=== PATIENT | female | born 1985 | race Caucasian/White ===

== ENCOUNTER → 2020-05-11 13:10 | Outpatient (BNVA) | payer OTHER, SELFPAY | PROVIDERS: Family Provider Nurse Practitioner Family; Visit Provider Obstetrics & Gynecology | DX: Z12.4 Encounter for screening for malignant neoplasm of cervix (principal); N93.9 Abnormal uterine and vaginal bleeding, unspecified | CPT/HCPCS: 83001; 84146; 84443; 84703; 85025; 88175 ==

== ENCOUNTER → 2020-05-19 14:53 | Outpatient (BNVA) | payer OTHER, SELFPAY | PROVIDERS: Family Provider Nurse Practitioner Family; Visit Provider Obstetrics & Gynecology | DX: N92.0 Excessive and frequent menstruation with regular cycle (principal) | CPT/HCPCS: 76830 ==

== ENCOUNTER 2021-02-09 08:19 | Outpatient (CLI) | payer OTHER, SELFPAY ==
[2021-02-09 07:11] VITALS: BP 129/85; PULSE 94; RESP 19; TEMP 36.8; O2SAT 91
[2021-02-09 08:30] VITALS: BMI 26.6
[2021-02-09 09:10] VITALS: BP 119/82; PULSE 80; RESP 18; TEMP 36.8; O2SAT 90
[2021-02-09 10:10] VITALS: BP 120/83; PULSE 73; RESP 17; TEMP 36.8
== END 2021-02-09 08:20 | disposition home or self-care (01) ==
LOC: OPS 08:20
PROVIDERS: PCP Family Medicine; Visit Provider Nurse Practitioner
DX: U07.1 COVID-19 (principal)
CPT/HCPCS: 96365

== ENCOUNTER → 2021-07-07 15:26 | Outpatient (BNVA) | payer OTHER, SELFPAY | PROVIDERS: PCP Family Medicine; Visit Provider Physician Assistant | DX: M25.562 Pain in left knee (principal); M25.462 Effusion, left knee | CPT/HCPCS: 73560; 73565 ==

== ENCOUNTER 2021-07-28 10:54 | Outpatient (CLI) | payer OTHER, SELFPAY ==
--- NOTE | 2021-07-28 11:00 | MR_ITS ---
WS: [id number] MRI LEFT KNEE NONCONTRAST TECHNIQUE: Axial PD, coronal PD fat sat, coronal PD, sagittal PD, and sagittal PD fat-sat images obta ined. CLINICAL INFORMATION: pain COMPARISON: None. FINDINGS: Distal quadriceps and patella tendons are intact. Moderate suprapatellar effusion. Small amount of pr epatellar and infrapatellar soft tissue edema. Hypertrophic patella. Normal ACL and PCL. Chronic thinning of the medial and lateral meniscus. No acute appearing meniscal tears. Grade II chondromalacia involving the medial and lateral joint compartments. No subchondral ed lupe. Normal medial and lateral collateral ligaments. Normal popliteus. Mild chondromalacia patella. Normal medial and lateral patellar retinaculum. Tiny popliteal cyst. MR/MR knee LT wo con* [id number] IMPRESSION: 1. Moderate suprapatellar effusion. 2. Normal ACL and PCL. 3. Chronic thinning of the medial and lateral meniscus. No acute appearing men iscal tears. 4. Mild chondromalacia patella. 5. Normal medial and lateral collateral ligaments. 6. Tiny popliteal cyst measuring 8 x 6 mm. 7. Grade II chondromalacia involving the medial and lateral joint compartments . No subchondral edema. Outbridge grading:
== END 2021-07-28 10:55 | disposition home or self-care (01) ==
LOC: RAD 10:55
PROVIDERS: PCP Family Medicine; Visit Provider Physician Assistant
DX: M25.462 Effusion, left knee (principal); M22.42 Chondromalacia patellae, left knee; M71.22 Synovial cyst of popliteal space [Baker], left knee; M25.562 Pain in left knee
CPT/HCPCS: 73721

== ENCOUNTER 2021-08-11 09:03 | Outpatient (CLI) | payer OTHER, SELFPAY ==
[2021-08-11 12:37] LABS: Alanine Aminotransferase 11 U/L (0-33); Albumin Level 4.7 g/dL (3.5-5.2); Alkaline Phosphatase 68 IU/L (35-105); Blood Urea Nitrogen 11 mg/dL (6-20); Calcium 9.3 mg/dL (8.5-10.5); Carbon Dioxide 26 mmol/L (22-29); Chloride 102 mmol/L (98-107); Globulin 3.1 g/dL (1.3-4.6); Glomerular Filtration Rate 96.4 mL/min (90-130); Glucose 84 mg/dL (65-115); Osmolality Calculated 287 mOsm/kg (285-295); Sodium 139 mmol/L (136-145); Total Bilirubin 0.4 mg/dL (0.15-1.2); Total Protein 7.8 g/dL (6.6-8.7)
[2021-08-11 12:40] LABS: Anion Gap 15.1 (5-19); Potassium 4.1 mmol/L (3.5-5.1)
[2021-08-11 12:41] LABS: Aspartate Amino Transferase 22 U/L (0-32)
[2021-08-12 12:03] LABS: COMPLEMENT COMPONENT C3C 153 mg/dL (83-193); COMPLEMENT COMPONENT C4C 29 mg/dL (15-57)
[2021-08-12 13:08] LABS: Erythrocyte Sedimentation Rate 14 mm/hr (0-15)
[2021-08-12 14:07] LABS: Cyclic Citrullinated Peptide <16 UNITS
[2021-08-12 16:13] LABS: COMPLEMENT, TOTAL (CH50) >60 U/mL (31-60); THYROID PEROXIDASE ANTIBODIES 2 IU/mL (<9)
[2021-08-12 16:47] LABS: CENTROMERE B ANTIBODY <1.0 NEG AI (<1.0 NEG); JO-1 ANTIBODY <1.0 NEG AI (<1.0 NEG); RNP ANTIBODY <1.0 NEG AI (<1.0 NEG); SCL-70 ANTIBODY <1.0 NEG AI (<1.0 NEG); SJOGREN'S ANTIBODY (SS-A) <1.0 NEG AI (<1.0 NEG); SM ANTIBODY <1.0 NEG AI (<1.0 NEG); SS-B <1.0 NEG AI (<1.0 NEG)
[2021-08-16 18:58] LABS: ANA SCREEN, IFA POSITIVE (NEGATIVE)
[2021-08-17 16:38] LABS: DNA AB (DS) CRITHIDIA,IFA NEGATIVE (NEGATIVE)
== END 2021-08-11 09:04 | disposition home or self-care (01) ==
PROVIDERS: PCP Family Medicine; Visit Provider Orthopaedic Surgery
DX: M17.12 Unilateral primary osteoarthritis, left knee (principal); M23.92 Unspecified internal derangement of left knee
CPT/HCPCS: 80053; 85651; 86140; 86160; 86162; 86200; 86235; 86255; 86376; 86431

== ENCOUNTER 2021-09-23 14:48 | Outpatient (CLI) | payer OTHER, SELFPAY ==
--- NOTE | 2021-09-23 15:22 | XR_ITS ---
WS: [id number] XR shoulder RT min 2V* [id number] REASON FOR EXAM: M19.90 - Unspecified osteoarthritis, unspecified site FINDINGS: No fracture or focal bone lesion. The acromial clavicular joint is intact without significant narrowing or subchondral bone change. Glenohumeral joint space is intact and relatively well-preserved. No significant subchondral bone aris nge in the humerus or glenoid. Moderate subchondral sclerosis in the humeral greater biceps tuberosity. XR/XR shoulder RT min 2V* [id number] IMPRESSION: Acromioclavicular and glenohumeral joints are without significant abnormality. Moderate rotator cuff tendon arthropathy.
--- NOTE | 2021-09-23 15:22 | XR_ITS ---
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 No erosions, bridging, or fusion is identified. No fracture or focal bone lesion. XR/XR sacroiliac jts m 3V [id number] IMPRESSION: No findings of spondyloarthropathy sacroiliitis.
[2021-09-23 15:50] LABS: Basophils % 0.1 %; Hematocrit 40.1 % (37.0-47.0); Hemoglobin 12.5 g/dL (11.5-15.3); Lymphocytes # 0.9 10^3/uL (0.8-4.8); Lymphocytes % 10.4 %; Mean Corpuscular HGB Conc 31.2 g/dL (30.0-36.0); Mean Corpuscular Hemoglobin 27.1 pg (28.0-34.0); Mean Platelet Volume 10.8 fL (7.4-10.4); Monocytes # 0.2 10^3/uL (0.2-0.9); Monocytes % 2.3 %; Neutrophils % 86.9 %; Nucleated Red Blood Cells % 0 %; Platelet Count 276 10^3/cmm (130-400); Red Blood Count 4.61 10^6/uL (4.1-5.3); White Blood Count 8.6 10^3/uL (4.0-10.0)
[2021-09-23 15:52] LABS: Erythrocyte Sedimentation Rate 22 mm/hr (0-15)
[2021-09-23 16:10] LABS: Add Urine Culture? No; Bacteria Urine TRACE /hpf; Bilirubin Urine Neg (Negative); Blood Urine Neg (Negative); Glucose Urine UA 4+ (Normal); Ketones Urine 1+ (Negative); Leukocyte Esterase Urine Negative (Negative); Nitrate Urine Negative (Negative); Protein Urine Neg (Negative); Specific Gravity, Urine 1.025 (1.005-1.030); Squamous Epithelial Cell Urine 0-4 /hpf (0-5); Urine Appearance Clear (CLEAR); Urine Color Yellow (Yellow); Urobilinogen Urine Norm (Negative); WBC Urine 0-4 /hpf (0-5); pH Urine 5 (5-7)
[2021-09-23 16:35] LABS: Hepatitis B Core AB, Total Non-Reactive (Nonreactive); Hepatitis B Surface Antigen Non-Reactive (Nonreactive); Hepatitis C Virus Antibody Non-Reactive (Nonreactive)
[2021-09-23 16:43] LABS: Urine Creatinine 142 mg/dL (28-217); Urine Protein Random 12 mg/dL
[2021-09-26 16:06] LABS: HLA-B27 NEGATIVE (NEGATIVE)
[2021-09-26 17:07] LABS: Quantiferon Mitogen 4.43 IU/mL; Quantiferon Nil 0.01 IU/mL; Quantiferon TB Gold NEGATIVE (NEGATIVE)
[2021-09-28 17:28] LABS: Thyroglobulin AB 4 IU/mL (< or = 1)
== END 2021-09-23 14:49 | disposition home or self-care (01) ==
LOC: RAD CLINIC 14:50 → RAD 14:51
PROVIDERS: PCP Family Medicine; Visit Provider Internal Medicine Rheumatology
DX: Z11.59 Encounter for screening for other viral diseases (principal); M45.6 Ankylosing spondylitis lumbar region; Z79.899 Other long term (current) drug therapy; R76.8 Other specified abnormal immunological findings in serum; M12.811 Other specific arthropathies, not elsewhere classified, right shoulder
CPT/HCPCS: 72202; 73030; 81001; 82570; 84156; 85025; 85651; 86140; 86480; 86704; 86800; 86803; 86812; 87340

== ENCOUNTER 2021-11-30 15:13 | Outpatient (CLI) | payer OTHER, SELFPAY ==
--- NOTE | 2021-11-30 15:15 | MR_ITS ---
WS: [id number] MRI RIGHT SHOULDER HISTORY: Anterior shoulder pain with limited range of motion. History of shoulder dislocation. COMPARISON: Radiographs 09/23/2021 TECHNIQUE: Multiplanar sequences of the shoulder joint are submitted. Normal AC joint. No AC ligament sprain. No fluid at the joint or marrow edema. There is a very tiny o steophyte from the distal undersurface of the acromion with minimal subacromial impingement. No os ac romion. Biceps tendon in good position. Glenohumeral joint is normal. No fracture or marrow edema. Increased signal in the distal supraspinat us tendon begins over the superior humeral head. Increased signal is most prominent on the proton den sity sequences. Near normal signal on the T2 sequences. Consistent with tendinopathy. No rotator cuff tear is identified. Rotator cuff muscles are normal size. No marrow edema or atrophy. There is a sma ll amount of fluid in the subacromial recess. No Hill-Sachs deformity. No Bankart lesion. No labral t ear is identified. MR/MR shoulder RT wo con* [id number] IMPRESSION: 1. Mild tendinopathy distal supraspinatus tendon. No tendon tear. 2. Small amount of fluid in the subacromial recess. 3. No labral tear. 4. No Bankart lesion or Hill-Sachs deformity.
== END 2021-11-30 15:14 | disposition home or self-care (01) ==
LOC: RAD 15:14
PROVIDERS: PCP Family Medicine; Visit Provider Internal Medicine Rheumatology
DX: M67.90 Unspecified disorder of synovium and tendon, unspecified site (principal)
CPT/HCPCS: 73221

== ENCOUNTER 2022-01-02 07:31 | Emergency (ER) | payer OTHER, SELFPAY ==
[2022-01-02 07:35] VITALS: BP 112/76; PULSE 84; RESP 15; TEMP 36.6; O2SAT 98; BMI 28.1
[2022-01-02 08:19] LABS: Basophils % 0.5 %; Eosinophils # 0.1 10^3/uL (0.0-0.8); Eosinophils % 1.2 %; Hematocrit 38.4 % (37.0-47.0); Hemoglobin 11.9 g/dL (11.5-15.3); Lymphocytes # 1.9 10^3/uL (0.8-4.8); Lymphocytes % 29.4 %; Mean Corpuscular Volume 87.3 fl (81-99); Mean Platelet Volume 10.5 fL (7.4-10.4); Monocytes # 0.3 10^3/uL (0.2-0.9); Monocytes % 4.9 %; Neutrophils % 63.7 %; Nucleated Red Blood Cells % 0 %; Platelet Count 275 10^3/cmm (130-400); Red Cell Distribution Width 14.2 % (12.1-15.1); White Blood Count 6.6 10^3/uL (4.0-10.0)
[2022-01-02 08:36] LABS: Alanine Aminotransferase 9 U/L (0-33); Albumin Level 3.9 g/dL (3.5-5.2); Alkaline Phosphatase 59 U/L (35-105); Anion Gap 13.9 (5-19); Aspartate Amino Transferase 13 U/L (0-32); Blood Urea Nitrogen 12 mg/dL (6-20); Calcium 9.3 mg/dL (8.5-10.5); Carbon Dioxide 27 mmol/L (22-29); Chloride 102 mmol/L (98-107); Globulin 3.3 g/dL (1.3-4.6); Glomerular Filtration Rate 141.2 mL/min (90-130); Glucose 89 mg/dL (65-115); Osmolality Calculated 287 mOsm/kg (285-295); Potassium 3.9 mmol/L (3.5-5.1); Sodium 139 mmol/L (136-145); Total Bilirubin 0.4 mg/dL (0.15-1.2); Total Protein 7.2 g/dL (6.6-8.7)
--- NOTE | 2022-01-02 08:43 | ED_ITS ---
HPI - General Adult General: Chief complaint: Needlestick/Injury/Exposure Stated complaint: needle stick Time Seen by Provider: 01/02/22 07:44 History of Present Illness: 36-year-old female presents emergency room after an accidental needlestick in the operating room. 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 Source patient is still in the operating room at this time has no known history of hepatitis or HIV as far as the patient is aware. Location: left and upper extremity Associated symptoms: Deny chest pain, dyspnea, malaise, nausea or vomiting Treatments prior to arrival: none Review of Systems Const: Denies: fever(s), chills, fatigue or malaise Card: Denies: chest pain Resp: Denies: dyspnea, productive cough or non-productive cough GI: Denies: abdominal pain, nausea or vomiting PFSH ED PFSH: Medical History High risk medication use Plaque psoriasis Positive PALOMO (antinuclear antibody) Psoriatic arthritis Surgical History H/O bariatric surgery 12/2017 H/O tubal ligation S/P cholecystectomy 2019 S/P tonsillectomy and adenoidectomy Family History Grandmother Thyroid condition paternal Mother Uterine cancer precancerous mid 30's Denies family history of Colon cancer Ovarian cancer Diabetes Clotting disorder Heart disease Hyperlipidemia Breast cancer Anesthesia complication Bleeding disorder Hypertension Stroke Social History Smoking and tobacco status: never smoked Alcohol intake: current Alcohol intake frequency: holidays/special occasions only Alcohol type: beer and wine Physical Exam Const: COMMON NORMALS: no acute distress GENERAL APPEARANCE: cooperative and comfortable ORIENTATION/CONSCIOUSNESS: Yes awake, Yes oriented to person, Yes oriented to place and Yes oriented to time HENMT: COMMON NORMALS: normocephalic and atraumatic HEAD & SCALP: normocephalic and atraumatic Resp: COMMON NORMALS: normal respiratory effort, No retractions, No use of accessory muscles and clear to auscultation bilaterally AUSCULTATION: clear to auscultation bilaterally Cardio: COMMON NORMALS: regular rate, regular rhythm and No murmurs present (Cardio) RATE: regular rate RHYTHM: regular rhythm Extremity: COMMON NORMALS: normal to inspection, capillary refill normal, no clubbing, cyanosis or edema, no calf tenderness and no pedal edema Neuro: SENSORIUM/ORIENTATION: Yes oriented to person, Yes oriented to place and Yes oriented to time Skin: COMMON NORMALS: no rashes or lesions noted GENERAL SKIN EXAM: no ra shes or lesions noted Course Vital Signs: Vital signs: Vital Signs Temperature 98 F 01/02/22 07:35 Pulse Rate 84 01/02/22 07:35 Respiratory Rate 15 01/02/22 07:35 Blood Pressure 112/76 01/02/22 07:35 Pulse Oximetry 98 01/02/22 07:35 Oxygen Delivery Me thod 01/02/22 07:35 MDM - General Adult Medical Decision Making Baseline screening labs done. At this time patient opts to wait on source patient testing before considering hepatitis B immune globulin or HIV prophylaxis. Encouraged her to follow-up through employee health. Medical Records I reviewed the patient's medical records. Lab Data I reviewed the patient's lab results. 01/02/22 08:00 01/02/22 08:00 Laboratory Results WBC 6.6 10^3/uL (4.0-10.0) 01/02/22 08:00 RBC 4.40 10^6/uL (4.1-5.3) 01/02/22 08:00 Hgb 11.9 g/dL (11.5-15.3) 01/02/22 08:00 Hct 38.4 % (37.0-47.0) 01/02/22 08:00 MCV 87.3 fl (81-99) 01/02/22 08:00 MCH 27.0 pg (28.0-34.0) L 01/02/22 08:00 MCHC 31.0 g/dL (30.0-36.0) 01/02/22 08:00 RDW 14.2 % (12.1-15.1) 01/02/22 08:00 Plt Count 275 10^3/cmm (130-400) 01/02/22 08:00 MPV 10.5 fL (7.4-10.4) H 01/02/22 08:00 Neut % (Auto) 63.7 % 01/02/22 08:00 Lymph % (Auto) 29.4 % 01/02/22 08:00 [place] % (Auto) 4.9 % 01/02/22 08:00 Eos % (Auto) 1.2 % 01/02/22 08:00 Baso % (Auto) 0.5 % 01/02/22 08:00 Neut # (Auto) 4.20 10^3/uL (1.8-7.7) 01/02/22 08:00 Lymph # (Auto) 1.9 10^3/uL (0.8-4.8) 01/02/22 08:00 [place] # (Auto) 0.3 10^3/uL (0.2-0.9) 01/02/22 08:00 Eos # (Auto) 0.1 10^3/uL (0.0-0.8) 01/02/22 08:00 Baso # (Auto) 0.0 10^3/uL (0.0-0.1) 01/02/22 08:00 Nucleated RBC % (auto) 0 % 01/02/22 08:00 Nucleated RBCs # 0.0 /100WBC 01/02/22 08:00 Sodium 139 mmol/L (136-145) 01/02/22 08:00 Potassium 3.9 mmol/L (3.5-5.1) 01/02/22 08:00 Chloride 102 mmol/L (98-107) 01/02/22 08:00 Carbon Dioxide 27 mmol/L (22-29) 01/02/22 08:00 Anion Gap 13.9 (5-19) 01/02/22 08:00 BUN 12 mg/dL (6-20) 01/02/22 08:00 Creatinine 0.5 mg/dL (0.5-0.9) 01/02/22 08:00 GFR Calculation 141.2 mL/min (90-130) H 01/02/22 08:00 Glucose 89 mg/dL (65-115) 01/02/22 08:00 Calculated Osmolality 287 mOsm/kg (285-295) 01/02/22 08:00 Calcium 9.3 mg/dL (8.5-10.5) 01/02/22 08:00 Total Bilirubin 0.4 mg/dL (0.15-1.2) 01/02/22 08:00 AST 13 U/L (0-32) 01/02/22 08:00 ALT 9 U/L (0-33) 01/02/22 08:00 Alkaline Phosphatase 59 U/L (35-105) 01/02/22 08:00 Total Protein 7.2 g/dL (6.6-8.7) 01/02/22 08:00 Albumin 3.9 g/dL (3.5-5.2) 01/02/22 08:00 Globulin 3.3 g/dL (1.3-4.6) 01/02/22 08:00 Hepatitis A IgM Ab Non-reactive (Nonreactive) 01/02/22 08:00 Hep Bs Antigen Non-reactive (Nonreactive) 01/02/22 08:00 Hep B Core IgM Ab Non-reactive (Nonreactive) 01/02/22 08:00 Hepatitis C Antibody Non-reactive (Nonreactive) 01/02/22 08:00 HIV 1&2 Ab & HIV 1 Ag Non-reactive (Non-Reactiv) 01/02/22 08:00 HIV 1&2 Antibody Non-reactive (Non-Reactiv) 01/02/22 08:00 Discharge Plan Discharge Patient Disposition: Home Clinical Impression: Needlestick injury accident Condition: Stable Prescriptions: No Action cholecalciferol (vitamin D3) 1,250 mcg (50,000 unit) wafer PO .once weekly mecobalamin (vitamin B12) 10,000 mcg recon soln IM .monthly clonazepam 0.5 mg tablet 0.5 mg PO ONCE PRN (Reason: Anxiety) fluoxetine [Prozac] 10 mg capsule 10 mg PO DAILY trazodone 50 mg tablet 25 mg PO .HS prednisone 20 mg tablet See Rx Instructions PO .COMPLEX PRN (Reason: joint pain flare) Qty: 30 1RF Rx Instructions: take 2 tabs daily x3days then 1.5 tabs daily x3days then 1 tab daily x3days then stop. leflunomide 10 mg tablet 10 mg PO DAILY Qty: 30 3RF Discharge Orders: Discharge ED (Routine); Ordered 01/02/22 Ordered By: Dean Munguia Referrals: Roylance,Swapnil F, MD [Primary Care Provider] - Discharge Diet: Usual diet Discharge Activity: Resume usual activity Patient Instructions: Blood/Body Fluid Exposure - Occupational, Needle Stick Injuries (ED), Opioid Safety, Pain Management Activity Restrictions/Additional Instructions: Follow-up with employee health after the source patient has been tested. After discussion you have chosen to wait until start patient was tested prior to initializing HIV prophylaxis. If he change her mind anytime employee health can assist with getting you started on the appropriate medications. Coding Level of Care Code ED Welfare Adviser for Tiffanie Tracy
[2022-01-02 08:47] LABS: HIV 1 & 2 Antibody Non-Reactive (Non-Reactiv); HIV 1 & 2 Antigen Non-Reactive (Non-Reactiv)
[2022-01-02 15:30] LABS: Hepatitis A Antibody IgM Non-Reactive (Nonreactive); Hepatitis B Core IgM Non-Reactive (Nonreactive); Hepatitis B Surface Antigen Non-Reactive (Nonreactive); Hepatitis C Virus Antibody Non-Reactive (Nonreactive)
== END 2022-01-02 08:30 | disposition home or self-care (01) ==
PROVIDERS: Emergency Provider Family Medicine; PCP Family Medicine
DX: T14.8XXA Other injury of unspecified body region, initial encounter (principal); W46.1XXA Contact with contaminated hypodermic needle, initial encounter; Y92.234 Operating room of hospital as the place of occurrence of the external cause; Y99.0 Civilian activity done for income or pay
CPT/HCPCS: 80053; 80074; 85025; 87806; 99283

== ENCOUNTER 2022-02-14 10:01 | Outpatient (CLI) | payer OTHER, SELFPAY ==
[2022-02-14 10:58] LABS: Basophils % 0.5 %; Eosinophils # 0.1 10^3/uL (0.0-0.8); Eosinophils % 0.8 %; Hematocrit 37.4 % (37.0-47.0); Hemoglobin 11.5 g/dL (11.5-15.3); Lymphocytes # 1.8 10^3/uL (0.8-4.8); Lymphocytes % 24.6 %; Mean Corpuscular HGB Conc 30.7 g/dL (30.0-36.0); Mean Corpuscular Hemoglobin 26.4 pg (28.0-34.0); Mean Corpuscular Volume 85.8 fl (81-99); Mean Platelet Volume 10.3 fL (7.4-10.4); Monocytes # 0.5 10^3/uL (0.2-0.9); Monocytes % 7.2 %; Neutrophils # 4.94 10^3/uL (1.8-7.7); Neutrophils % 66.6 %; Nucleated Red Blood Cells % 0 %; Platelet Count 274 10^3/cmm (130-400); Red Blood Count 4.36 10^6/uL (4.1-5.3); Red Cell Distribution Width 13.8 % (12.1-15.1); White Blood Count 7.4 10^3/uL (4.0-10.0)
[2022-02-14 11:23] LABS: Alanine Aminotransferase 9 U/L (0-33); Alkaline Phosphatase 64 U/L (35-105); Aspartate Amino Transferase 16 U/L (0-32); Glomerular Filtration Rate 95.8 mL/min (90-130); Total Bilirubin 0.3 mg/dL (0.15-1.2)
== END 2022-02-14 10:02 | disposition home or self-care (01) ==
PROVIDERS: PCP Family Medicine; Visit Provider Internal Medicine Rheumatology
DX: L40.50 Arthropathic psoriasis, unspecified (principal); Z79.899 Other long term (current) drug therapy
CPT/HCPCS: 36415; 80076; 82565; 85025; 86140

== ENCOUNTER 2022-05-31 09:14 | Outpatient (CLI) | payer OTHER, SELFPAY ==
[2022-05-31 11:14] LABS: Basophils % 0.5 %; Eosinophils # 0.1 10^3/uL (0.0-0.8); Eosinophils % 1.2 %; Hematocrit 36.8 % (37.0-47.0); Hemoglobin 11.2 g/dL (11.5-15.3); Lymphocytes # 2.3 10^3/uL (0.8-4.8); Lymphocytes % 28.5 %; Mean Corpuscular HGB Conc 30.4 g/dL (30.0-36.0); Mean Corpuscular Hemoglobin 24.9 pg (28.0-34.0); Mean Corpuscular Volume 81.8 fl (81-99); Mean Platelet Volume 10.4 fL (7.4-10.4); Monocytes # 0.5 10^3/uL (0.2-0.9); Monocytes % 5.6 %; Neutrophils # 5.26 10^3/uL (1.8-7.7); Nucleated Red Blood Cells % 0 %; Platelet Count 277 10^3/cmm (130-400); Red Cell Distribution Width 14.9 % (12.1-15.1); White Blood Count 8.2 10^3/uL (4.0-10.0)
[2022-05-31 11:24] LABS: Estmated Average Glucose 97
[2022-05-31 11:36] LABS: Alanine Aminotransferase 9 U/L (0-33); Albumin Level 4.5 g/dL (3.5-5.2); Alkaline Phosphatase 58 U/L (35-105); Aspartate Amino Transferase 17 U/L (0-32); Globulin 2.7 g/dL (1.3-4.6); Glomerular Filtration Rate 114.4 mL/min (90-130); Total Bilirubin 0.3 mg/dL (0.15-1.2); Total Protein 7.2 g/dL (6.6-8.7)
== END 2022-05-31 09:15 | disposition home or self-care (01) ==
PROVIDERS: Visit Provider Internal Medicine Rheumatology
DX: L40.50 Arthropathic psoriasis, unspecified; Z79.899 Other long term (current) drug therapy; M19.90 Unspecified osteoarthritis, unspecified site
CPT/HCPCS: 80076; 82565; 83036; 85025; 86140

== ENCOUNTER → 2022-10-30 11:56 | Outpatient (BNVA) | payer OTHER, SELFPAY | PROVIDERS: PCP Family Medicine; Visit Provider Internal Medicine Rheumatology | DX: L40.50 Arthropathic psoriasis, unspecified (principal); Z79.899 Other long term (current) drug therapy; L40.0 Psoriasis vulgaris; R76.8 Other specified abnormal immunological findings in serum | CPT/HCPCS: 80076; 82565; 85025; 86140 ==

== ENCOUNTER 2023-03-30 13:15 | Outpatient (CLI) | payer OTHER, SELFPAY ==
[2023-03-30 13:29] LABS: Basophils % 0.3 %; Eosinophils # 0.1 10^3/uL (0.0-0.8); Eosinophils % 1.6 %; Hematocrit 35.9 % (36-47); Lymphocytes # 2.1 10^3/uL (0.8-4.8); Lymphocytes % 30.3 %; Mean Corpuscular HGB Conc 31.8 g/dL (30-55); Mean Corpuscular Hemoglobin 27.7 pg (27-33); Mean Corpuscular Volume 87.3 fl (85-98); Mean Platelet Volume 10.4 fL (7.4-10.4); Monocytes # 0.4 10^3/uL (0.2-0.9); Monocytes % 5.6 %; Neutrophils # 4.19 10^3/uL (1.8-7.7); Neutrophils % 62.1 %; Nucleated Red Blood Cells % 0 %; Platelet Count 213 10^3/cmm (157-399); Red Blood Count 4.11 10^6/uL (3.85-5.65); Red Cell Distribution Width 14.2 % (12.1-15.1); White Blood Count 6.76 10^3/uL (3.29-11.43)
[2023-03-30 13:45] LABS: Alanine Aminotransferase 8 U/L (0-33); Albumin Level 3.9 g/dL (3.5-5.2); Alkaline Phosphatase 51 U/L (35-105); Aspartate Amino Transferase 14 U/L (0-32); Globulin 2.8 g/dL (1.3-4.6); Glomerular Filtration Rate 113.8 mL/min (90-130); Total Bilirubin 0.3 mg/dL (0.15-1.2); Total Protein 6.7 g/dL (6.6-8.7)
== END 2023-03-30 13:16 | disposition home or self-care (01) ==
LOC: LAB 13:16
PROVIDERS: PCP Family Medicine; Visit Provider Internal Medicine Rheumatology
DX: L40.50 Arthropathic psoriasis, unspecified (principal); Z79.899 Other long term (current) drug therapy
CPT/HCPCS: 36415; 80076; 82565; 85025; 86140

== ENCOUNTER 2023-11-07 08:41 | Outpatient (CLI) | payer OTHER, SELFPAY ==
[2023-11-07 09:09] LABS: Basophils % 0.5 %; Eosinophils # 0.1 10^3/uL (0.0-0.8); Eosinophils % 1.9 %; Hematocrit 36.4 % (36-47); Lymphocytes # 2.1 10^3/uL (0.8-4.8); Lymphocytes % 36.7 %; Mean Corpuscular Hemoglobin 26.7 pg (27-33); Mean Corpuscular Volume 85.8 fl (85-98); Mean Platelet Volume 10.4 fL (7.4-10.4); Monocytes # 0.4 10^3/uL (0.2-0.9); Monocytes % 6.7 %; Neutrophils # 3.07 10^3/uL (1.8-7.7); Nucleated Red Blood Cells % 0 %; Platelet Count 223 10^3/cmm (157-399); Red Blood Count 4.24 10^6/uL (3.85-5.65); Red Cell Distribution Width 14.1 % (12.1-15.1); White Blood Count 5.69 10^3/uL (3.29-11.43)
[2023-11-07 09:30] LABS: Alanine Aminotransferase 8 U/L (0-33); Albumin Level 3.9 g/dL (3.5-5.2); Alkaline Phosphatase 52 U/L (35-105); Aspartate Amino Transferase 16 U/L (0-32); Globulin 2.8 g/dL (1.3-4.6); Glomerular Filtration Rate 94.7 mL/min (90-130); Total Bilirubin 0.4 mg/dL (0.15-1.2); Total Protein 6.7 g/dL (6.6-8.7)
== END 2023-11-07 08:42 | disposition home or self-care (01) ==
LOC: LAB 08:42
PROVIDERS: PCP Family Medicine; Visit Provider Internal Medicine Rheumatology
DX: Z79.899 Other long term (current) drug therapy (principal); L40.50 Arthropathic psoriasis, unspecified
CPT/HCPCS: 36415; 80076; 82565; 85025; 86140

== ENCOUNTER 2024-10-15 09:46 | Outpatient (CLI) | payer OTHER, SELFPAY ==
[2024-10-15 09:59] LABS: Hematocrit 36.2 % (36-47); Hemoglobin 11.00 g/dL (11.27-16.99); Mean Corpuscular HGB Conc 30.4 g/dL (30-55); Mean Corpuscular Hemoglobin 25.2 pg (27-33); Mean Corpuscular Volume 83.0 fl (85-98); Nucleated Red Blood Cells % 0 %; Platelet Count 249 10^3/cmm (157-399); Red Blood Count 4.36 10^6/uL (3.85-5.65); White Blood Count 7.40 10^3/uL (3.29-11.43)
[2024-10-15 10:36] LABS: Alanine Aminotransferase 14 U/L (0-33); Albumin Level 4.4 g/dL (3.5-5.2); Alkaline Phosphatase 64 U/L (35-105); Aspartate Amino Transferase 20 U/L (0-32); Globulin 3.0 g/dL (1.3-4.6); Total Protein 7.4 g/dL (6.6-8.7)
== END 2024-10-15 09:47 | disposition home or self-care (01) ==
LOC: LAB 09:47
PROVIDERS: PCP Family Medicine; Visit Provider Internal Medicine Rheumatology
DX: Z79.899 Other long term (current) drug therapy (principal); L40.50 Arthropathic psoriasis, unspecified
CPT/HCPCS: 36415; 80076; 82565; 85025; 85651; 86140